=== PATIENT | male | born 1995 | race Asian ===

== ENCOUNTER 2016-12-23 18:50 | Emergency (ER) | payer BC ==
[~2016-12-23] VITALS: Ht 165.1 cm; Wt 72.6 kg
--- NOTE | 2016-12-23 19:13 | NUR ---
PT REC'D TO ER C/O BLEEDING WHEN URINATING TODAY X1 UA GIVEN AWAITING EVALUATION BY ER PROVIDER.
[2016-12-23 19:38] LABS: APPEARANCE,URINE Clear (CLEAR); BILIRUBIN,URINE Negative (NEGATIVE); BLOOD, URINE Trace-intact Ery/uL (NEGATIVE); COLOR,URINE Yellow (YELLOW); KETONES,URINE Trace (NEGATIVE); LEUKOCYTE ESTERASE ,URINE Negative (NEGATIVE); NITRITE, URINE Negative (NEGATIVE); PROTEIN,URINE Negative (NEGATIVE); UGLUCOSE Negative (NEGATIVE); UROBILINOGEN,URINE 0.2 EU/dL (0.2)
[2016-12-23 19:52] LABS: BACTERIA,URINE None seen /HPF (None Seen); SQUAMOUS EPITHELIAL CELL,UR Few /HPF (None Seen); WBC,URINE NONE SEEN /HPF (0-3)
--- NOTE | 2016-12-23 20:03 | NUR ---
Patient discharged to home in stable condition. Written and verbal after care instructions given. Patient verbalizes understanding of instruction. Patient is ambulatory with a steady gait, no further complaints.
[2016-12-23 20:04] VITALS: BP 127/83
== END 2016-12-23 20:04 | disposition home or self-care (01) ==
LOC: ER 18:57
DX: N39.0 Urinary tract infection, site not specified (principal)
CPT/HCPCS: 81000-TC; 87086-TC; A4606; Z7610

== ENCOUNTER 2016-12-31 16:07 | Emergency (ER) | payer BC ==
[~2016-12-31] VITALS: Ht 165.1 cm; Wt 72.6 kg
[2016-12-31 16:15] VITALS: BP 113/66
[2016-12-31 16:47] LABS: APPEARANCE,URINE Clear (CLEAR); BILIRUBIN,URINE Negative (NEGATIVE); BLOOD, URINE Trace-intact Ery/uL (NEGATIVE); COLOR,URINE Yellow (YELLOW); KETONES,URINE Negative (NEGATIVE); LEUKOCYTE ESTERASE ,URINE Negative (NEGATIVE); NITRITE, URINE Negative (NEGATIVE); PROTEIN,URINE Negative (NEGATIVE); UGLUCOSE Negative (NEGATIVE); UROBILINOGEN,URINE 0.2 EU/dL (0.2)
[2016-12-31 16:52] LABS: BACTERIA,URINE Rare /HPF (None Seen); RBC,URINE 0-2 /HPF (0-2); SQUAMOUS EPITHELIAL CELL,UR Few /HPF (None Seen); WBC,URINE 0-2 /HPF (0-3)
[2017-01-02 01:13] LABS: *NEISSERIA GONORRHOEAE NAA Negative (Negative); CHLAMYDIA TRACHOMATIS NAA Negative (Negative)
== END 2016-12-31 17:52 | disposition home or self-care (01) ==
LOC: ER 16:10
DX: Z00.8 Encounter for other general examination (principal); J45.909 Unspecified asthma, uncomplicated
CPT/HCPCS: 81000-TC; 87491; 87591; A4606; Z7610

== ENCOUNTER 2017-07-31 19:46 | Emergency (ER) | payer BC ==
[~2017-07-31] VITALS: Ht 165.1 cm; Wt 72.6 kg
[2017-07-31 20:04] VITALS: BP 136/96
== END 2017-07-31 20:47 | disposition home or self-care (01) ==
LOC: ER 19:49
DX: L03.312 Cellulitis of back [any part except buttock and flank] (principal); J45.909 Unspecified asthma, uncomplicated
CPT/HCPCS: A4606; Z7610

== ENCOUNTER 2018-02-11 20:30 | Emergency (ER) | payer OTHER ==
[~2018-02-11] VITALS: Ht 167.6 cm; Wt 75.7 kg
[2018-02-11 20:34] VITALS: BP 137/95
== END 2018-02-11 22:29 | disposition home or self-care (01) ==
LOC: ER 20:30
DX: S63.502A Unspecified sprain of left wrist, initial encounter (principal); J45.909 Unspecified asthma, uncomplicated; F10.10 Alcohol abuse, uncomplicated; Y90.9 Presence of alcohol in blood, level not specified; X50.0XXA Overexertion from strenuous movement or load, initial encounter; Y93.89 Activity, other specified; Y92.89 Other specified places as the place of occurrence of the external cause; Y99.0 Civilian activity done for income or pay
CPT/HCPCS: 73110; 99284; A4606; Z7610

== ENCOUNTER 2018-12-22 17:53 | Emergency (ER) | payer SELFPAY ==
[~2018-12-22] VITALS: Ht 165.1 cm; Wt 72.6 kg
[2018-12-22 17:53] VITALS: BP 134/89
--- NOTE | 2018-12-22 18:29 | NUR ---
Patient discharged to home in stable condition. Written and verbal after care instructions given. Patient verbalizes understanding of instruction.
== END 2018-12-22 18:29 | disposition home or self-care (01) ==
LOC: ER 17:54
DX: J04.0 Acute laryngitis (principal); J03.90 Acute tonsillitis, unspecified; J45.909 Unspecified asthma, uncomplicated; F10.10 Alcohol abuse, uncomplicated; Y90.9 Presence of alcohol in blood, level not specified
CPT/HCPCS: 86403-TC; 87070-TC

== ENCOUNTER 2019-01-10 11:42 | Emergency (ER) | payer BC ==
[~2019-01-10] VITALS: Ht 165.1 cm; Wt 72.6 kg
[2019-01-10 12:02] VITALS: BP 133/61
== END 2019-01-10 12:52 | disposition home or self-care (01) ==
LOC: ER 11:45
DX: J02.9 Acute pharyngitis, unspecified (principal); J45.909 Unspecified asthma, uncomplicated; F10.10 Alcohol abuse, uncomplicated; Y90.9 Presence of alcohol in blood, level not specified

== ENCOUNTER 2019-03-29 16:02 | Emergency (ER) | payer SELFPAY ==
[~2019-03-29] VITALS: Ht 165.1 cm; Wt 72.6 kg
[2019-03-29 16:12] VITALS: BP 129/86
== END 2019-03-29 16:50 | disposition home or self-care (01) ==
LOC: ER 16:03
DX: S51.812D Laceration without foreign body of left forearm, subsequent encounter (principal); S41.012D Laceration without foreign body of left shoulder, subsequent encounter; S41.111D Laceration without foreign body of right upper arm, subsequent encounter; J45.909 Unspecified asthma, uncomplicated; F10.10 Alcohol abuse, uncomplicated; Y90.9 Presence of alcohol in blood, level not specified; X58.XXXD Exposure to other specified factors, subsequent encounter